=== PATIENT | female | born 1940 | race African-American/Black ===

== ENCOUNTER 2017-06-16 10:05 | Inpatient (IN) ==
[2017-06-16] MEDS ORDERED: *HR* OxyCODONE Immed Rel 5 MG TABLET PO PRN (11:50)
[2017-06-16] MEDS ORDERED: Naloxone 0.4 MG/ML INJ IVP PRN (11:50)
[2017-06-16] MEDS ORDERED: Acetaminophen 325 MG TABLET PO PRN (11:50)
[2017-06-16] MEDS ORDERED: Ondansetron 4 MG/2 ML VIAL IVP PRN (11:52)
[2017-06-16] MEDS ORDERED: D5% in Water 1,000 ML IVC PRN (13:06)
[2017-06-16] MEDS ORDERED: *HR* Dextrose 50 % in Water (Syg) 50 ML SYRINGE IVP PRN (13:06)
[2017-06-16] MEDS ORDERED: Dextrose Gel 15 GM PO PRN ×2 (13:06)
--- NOTE | 2017-06-16 13:11 | Internal Med History&Physical ---
Date of Encounter: 06/16/17 Time of Encounter: 11:40 Assessment and Plan (1) Closed right hip fracture Current visit: Yes Status: Acute Patient with acute right hip fracture. Supportive care. Pain control. Consult with orthopedics for surgical management. Monitor vital signs. Pain control with combination of oral and intravenous medications. Preop eval: Patient stable at baseline. No acute cardiac issues. Underwent 2- D echocardiogram earlier this month which showed an EF of 70% with normal LV chamber size and function and mild left frontal and diastolic dysfunction. No evidence of pulmonary hypertension. Patient would be at intermediate risk for cardiac complications from anesthesia and surgery given her age. Patient okay to proceed with surgery at this point. Qualifiers: Encounter type: initial encounter Qualified Code(s): S72.001A - Fracture of unspecified part of neck of right femur, initial encounter for closed fracture (2) DM2 (diabetes mellitus, type 2) Current visit: Yes Status: Chronic monitor blood sugars. Place patient on sliding scale insulin. Diabetic diet when patient is able to eat. 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 Physical therapy consult after surgery. Patient will most likely need placement to skilled rehabilitation. Qualifiers: Encounter type: initial encounter Qualified Code(s): W19.XXXA - Unspecified fall, initial encounter (4) Leukocytosis Current visit: Yes Status: Acute Patient has acute leukocytosis. No signs of infection at this time. Most likely related to acute fracture. Will monitor vital signs and WBC count. No indication for antibiotics at this time. Qualifiers: Leukocytosis type: other Qualified Code(s): D72.828 - Other elevated white blood cell count (5) Atrial fibrillation Current visit: Yes Status: Chronic Patient with history of chronic atrial fibrillation. On metoprolol for rate control and Xarelto for anticoagulation. We will hold Xarelto for now due to acute fracture and need for surgery. Monitor vital signs closely. If hemoglobin levels are stable, may start IV heparin for anticoagulation if surgery delayed for any reason. Resume Xarelto after surgery when okay with orthopedics. Monitor heart rate with telemetry. Qualifiers: Atrial fibrillation type: paroxysmal Qualified Code(s): I48.0 - Paroxysmal atrial fibrillation Internal Medicine - H&P: HPI Chief complaint: Fall with injury to right hip Admitted From: Emergency Dept Plans for Post Hospital Care: Transfer Half-Way Facility History of present illness: Ms. Benedict is a 76 year old female patient with history of atrial fibrillation, diabetes who was recently discharged from [facility] following, admission for pneumonia presented to the ER today with complaints of fall. She was trying to product picker something from the floor while sitting up in her wheelchair this morning when she fell down. She injured her right hip and has been having severe pain since then. She had been recovering well from her pneumonia and had completed antibiotic treatment. She denies any chest pain and shortness of breath nausea vomiting or diarrhea. She denies any palpitations or lightheadedness. Denies any orthopnea but does get mild swelling in her lower extremities occasionally. She takes metformin at home for her diabetes. She is on Xarelto for A. fib. Past Med Surg Social Fam HX - Past Medical History Attestation: Yes The following information was validated with the patient. Source: patient Medical history: atrial fibrillation, CVA, diabetes, hypertension Psychiatric history: no psych history - Past Surgical History Surgical History: cholecystectomy - Social History Smoking Status: Never smoker Smokeless Tobacco Status: No Alcohol use: none Drug use: none - Family History Daughter Hx Family Endocrine Disorder: Yes Son Hx Family Endocrine Disorder: Yes Internal Medicine - H&P: Meds Aspirin 81 mg PO Q48H 365 Days tab.chew 06/09/17 [Rx] Metoprolol XL (24 HR) Succ [Toprol XL] 25 mg PO DAILY #30 tab.er.24h 06/09/17 [ Rx] Rivaroxaban [Xarelto] 20 mg PO DAILY #30 tablet 06/09/17 [Rx] metFORMIN [Glucophage] 500 mg PO BIDWM #60 tablet 06/09/17 [Rx] Insulin LISPRO [HumaLOG] 0 units SQ TIDAC PRN 06/16/17 [History] 3 Allergy/AdvReac Type Severity Reaction Status Date / Time No Known Allergies Allergy Verified 05/30/17 05:00 All Systems PM: A 10-system review of systems was performed and is negative for pertinent findings except as documented above in the HPI. - Constitutional Constitutional: no chills, no fever(s), no night sweats - EENT Eyes: no change in vision, no discharge, no pain, no photophobia Ears: no ear discharge, no ear pain, no tinnitus Nose, mouth and throat: no dysphagia, no nasal discharge, no neck pain, no sore throat - Cardiovascular Cardiovascular ROS IM: no chest pain, no diaphoresis, no dyspnea, no lightheadedness, no palpitations, no syncope - Respiratory Respiratory: no cough, no dyspnea, no wheezing, no excessive phlegm production - Gastrointestinal Gastrointestinal: no abdominal pain, no diarrhea, no hematemesis, no hematochezia, no melena, no nausea, no vomiting - Genitourinary Genitourinary: no change in urinary stream, no dysuria, no flank pain, no hematuria - Musculoskeletal Musculoskeletal ROS IM: as per HPI, no numbness, no tingling - Integumentary Integumentary IM: no rash, no unusual bruising - Neurological Neurological ROS: no confusion, no convulsions, no focal weakness, no numbness, no tingling, no tremor(s) - Hematologic/Lymphatic Hematologic/Lymphatic: no easy bruising - Constitutional Vitals: Temp Pulse Resp BP Pulse Ox 97.7 F 96 16 148/83 95 06/16/17 11:46 06/16/17 11:46 06/16/17 11:46 06/16/17 11:46 06/16/17 11:46 General appearance: Present: cooperative, A&O X 3, answers questions appropriately Exam: Moderate distress - Neck Neck exam general surgery: Present: supple, trachea midline. Absent: lymphadenopathy - Respiratory Respiratory exam: Present: CTAB. Absent: accessory muscle use, rales, rhonchi, wheezes - Cardiovascular Cardiovascular exam: Present: RRR, +S1, +S2. Absent: diastolic murmur, gallop, rubs, systolic murmur - GI/Abdominal GI/Abdominal exam: Present: normal bowel sounds, soft, no peritoneal signs. Absent: distended, tenderness - Extremities Exam Extremities exam: Present: tenderness (Right hip with decreased range of motion at hip and knee), warm, radial pulses palpable and symmetrical. Absent: calf tenderness, cyanotic, pedal edema - Neurological Exam Neurological exam: Present: alert, CN II-XII intact, oriented X3, no focal deficits. Absent: facial droop, speech deficit - Skin Skin exam: Present: dry, intact
[2017-06-16] MEDS: Ketorolac 30 MG/ML VIAL IVP PRN ×2 (14:28→20:52)
[2017-06-16] MEDS: *HR* Heparin 5,000 UNIT/ML VIAL SQ SCH (16:20)
[2017-06-16] MEDS: Insulin LISPRO 300 UNITS/3 ML VIAL SQ SCH (16:20)
[2017-06-16] MEDS: Ringers Solution, Lactated 1,000 ML IVC SCH (19:59)
--- NOTE | 2017-06-16 20:17 | Anesthesia Evaluation PreOp ---
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 History: CVA, Other Other Medical History: Diabetes Type II Anesthesia History: No Prior Anesthetic Complications, Past Anesthesia Alcohol Use: none Drug use: none Medications and Allergies Aspirin 81 mg PO Q48H 365 Days tab.chew 06/09/17 [Rx] Metoprolol XL (24 HR) Succ [Toprol XL] 25 mg PO DAILY #30 tab.er.24h 06/09/17 [ Rx] Rivaroxaban [Xarelto] 20 mg PO DAILY #30 tablet 06/09/17 [Rx] metFORMIN [Glucophage] 500 mg PO BIDWM #60 tablet 06/09/17 [Rx] Insulin LISPRO [HumaLOG] 0 units SQ TIDAC PRN 06/16/17 [History] 3 Allergy/AdvReac Type Severity Reaction Status Date / Time No Known Allergies Allergy Verified 05/30/17 05:00 - Meds/Allergy Pre-op Review Medications Reviewed: Yes Allergies Reviewed: Yes Beta Blockers on Current Med List: Yes Anesthesia Results - Labs Laboratory Last Values WBC 20.0 K/mcL (4.3-11.1) H 06/16/17 09:37 RBC 3.86 M/mcL (3.82-4.97) 06/16/17 09:37 Hgb 11.2 g/dL (11.5-15.4) L 06/16/17 09:37 Hct 34.0 % (35.3-44.9) L 06/16/17 09:37 MCV 88.1 fL (83.0-100.0) 06/16/17 09:37 MCH 29.0 pg (28.0-33.3) 06/16/17 09:37 MCHC 32.9 g/dL (31.6-35.5) 06/16/17 09:37 RDW 13.2 % (11.5-14.5) 06/16/17 09:37 Plt Count 432 K/mcL (140-400) H 06/16/17 09:37 MPV 9.5 fL (9.4-12.4) 06/16/17 09:37 Immature Gran % 0.7 % (0-4) 06/16/17 09:37 Seg Neutrophils % 84.1 % 06/16/17 09:37 Lymphocytes % 8.4 % 06/16/17 09:37 Monocytes % 5.9 % 06/16/17 09:37 Eosinophils % 0.4 % 06/16/17 09:37 Basophils % 0.5 % 06/16/17 09:37 Neutrophils # 16.8 K/mcL (1.6-8.9) H 06/16/17 09:37 Lymphocytes # 1.7 K/mcL (0.6-4.6) 06/16/17 09:37 Monocytes # 1.2 K/mcL (0.0-1.3) 06/16/17 09:37 Eosinophils # 0.1 K/mcL (0.0-0.6) 06/16/17 09:37 Basophils # 0.1 K/mcL (0.0-0.2) 06/16/17 09:37 PT 11.6 Seconds (9.4-12.1) 06/16/17 09:37 INR 1.1 06/16/17 09:37 APTT 32.8 Seconds (26.0-36.0) 06/16/17 09:37 Sodium 135 mEq/L (136-145) L 06/16/17 09:37 Potassium 4.4 mEq/L (3.5-5.1) 06/16/17 09:37 Chloride 98 mEq/L (98-107) 06/16/17 09:37 Carbon Dioxide 27 mEq/L (23-29) 06/16/17 09:37 BUN 18 mg/dL (8-23) 06/16/17 09:37 Creatinine 0.76 mg/dL (0.60-1.20) 06/16/17 09:37 Est GFR ( Amer) > 60 (> 60) 06/16/17 09:37 Est GFR (Non-Af Amer) > 60 (> 60) 06/16/17 09:37 BUN/Creatinine Ratio 24 (6-26) 06/16/17 09:37 Glucose 245 mg/dL (70-105) H 06/16/17 09:37 Calculated Osmolality 290 (280-300) 06/16/17 09:37 Calcium 9.2 mg/dL (8.6-10.3) 06/16/17 09:37 - Imaging EKG: report reviewed (Afib with RVR) Chest x-ray: report reviewed (No acute process) Additional studies: TTE 05/30/2017: LVEF 70%. Normal LV chamber size and function. Mild asymmetric hypertrophy of the basal septum. Mild left ventricular diastolic dysfunction. Normal right ventricular structure and function. No evidence of pulmonary hypertension. EKG 05/30/2017: ATRIAL FIBRILLATION WITH RAPID VENTRICULAR RESPONSE NONSPECIFIC ST & T-WAVE ABNORMALITY Anesthesia Exam Vital Signs/O2 Sat/Glucose, Most Recent Temp Pulse Resp BP Pulse Ox 98.1 F 80 15 106/62 94 06/16/17 19:33 06/16/17 19:33 06/16/17 19:33 06/16/17 19:33 06/16/17 19:33 Blood Glucose* 242 Height: 64 in Weight: 67 kg BMI 25 NPO (# of Hours): Patient can have clears until 5 am - HEENT Pupil (Motor): Pupils equal Mallampati: II Teeth: Edentulous Oral Opening: Greater than 3 - CHUTE LOADER LOC: Confused, Disoriented - Cardiac Rhythm: Irregular - Pulmonary Breath Sounds: bilateral Clear Anesthesia Assess/Plan ASA Score: 5 Anesthetic Plan: General Autologous Blood: Yes (Poss if convert to open. T&S ordered) Monitoring Plan: Standard Monitors, A-Line (Possible) Recovery Plan: PACU Anes Supervising Prov Stmt: The patient's history was obtained from chart review. I was unable to have a meaningful interaction with the patient, and I am not sure that she can give an informed consent. Apparently this is her baseline mental status. The patient is very frail, and is normally unable to take care of herself, and walks with the assistance of a walker. She was admitted with pneumonia from the to the 15th of this month. The patient does not have a POA, and does not have advance directives. The patient medically needs the procedure, for pain control and to improve nursing care. The patient will likely need to be in a skilled nursing care facility upon discharge. Consideration for hospice care would be very appropriate. This was discussed with the patient, the patient's sister who was present, and on the phone with the patient's daughter Kimmy who is her main caregiver, and who the patient lives with. This was also relayed to the patient's nurse and the unit charge nurse. A writen consent was NOT obtained.
[2017-06-16] MEDS ORDERED: Insulin LISPRO 300 UNITS/3 ML VIAL SQ SCH (21:00)
[2017-06-17] MEDS: Ketorolac 30 MG/ML VIAL IVP PRN ×3 (02:50→18:20)
[2017-06-17 06:09] LABS: Basophils % 0.3 %; Eosinophils # 0.1 K/mcL (0.0-0.6); Eosinophils % 1.1 %; Hematocrit 30.3 % (35.3-44.9); Hemoglobin 9.9 g/dL (11.5-15.4); Immature Granulocytes % 0.3 % (0-4); Lymphocytes # 1.4 K/mcL (0.6-4.6); Lymphocytes % 12.6 %; Mean Corpuscular HGB Conc 32.7 g/dL (31.6-35.5); Mean Corpuscular Hemoglobin 27.9 pg (28.0-33.3); Mean Corpuscular Volume 85.4 fL (83.0-100.0); Monocytes # 0.8 K/mcL (0.0-1.3); Monocytes % 7.4 %; Platelet Count 357 K/mcL (140-400); Red Blood Count 3.55 M/mcL (3.82-4.97); Red Cell Distribution Width 13.3 % (11.5-14.5); Segmented Neutrophils % 78.3 %
[2017-06-17 06:14] LABS: BUN/Creatinine Ratio 27 (6-26); Blood Urea Nitrogen 21 mg/dL (8-23); Carbon Dioxide 26 mEq/L (23-29); Chloride 100 mEq/L (98-107); Glucose 180 mg/dL (70-105); Osmolality,Calculated 284 (280-300); Potassium 4.3 mEq/L (3.5-5.1); Sodium 133 mEq/L (136-145); eGFR For African Americans > 60 (> 60); eGFR For Non-African Americans > 60 (> 60)
[2017-06-17] MEDS: *HR* Heparin 5,000 UNIT/ML VIAL SQ SCH (06:31)
--- NOTE | 2017-06-17 07:05 | Orthopedic Consult Note ---
Date of Encounter: 06/17/17 Time of Encounter: 07:03 Assessment and Plan (1) Hip fracture, intertrochanteric Current Visit: Yes Status: Acute Diagnosis and treatment options were discussed with the patient. She has a displaced right intertrochanteric fracture. Previously she was ambulating with a walker. Recommendation is for surgical fixation of the right hip cephalomedullary nail. The risks and benefits of the procedure were fully explained in detail, including but not limited to the risk of infection, neurovascular injury, continued pain or stiffness, failure of surgery, reinjury , or need for additional surgery, DVT, PE, general risks of anesthesia and loss of limb or life. No guarantees were given or implied and all questions were answered. The patient understands all the risks and does wish to proceed with written consent. Nothing by mouth for surgery today. Qualifiers: Encounter type: initial encounter Fracture type: closed Fracture alignment: displaced Laterality: right Qualified Code(s): S72.141A - Displaced intertrochanteric fracture of right femur, initial encounter for closed fracture History of Present Illness HPI: Ms. Benedict is a 76 year old female who had a mechanical fall on 06/16/17. She tripped and fell onto her right hip. Denies loss of consciousness, CP or SOB prior to the fall. Had pain and deformity in the right hip after the fall. Denies other orthopedic or neurovascular complaints. Past Med Surg Social Fam HX - Past Medical History Medical history: atrial fibrillation, CVA, diabetes, hypertension Psychiatric history: no psych history - Past Surgical History Surgical History: cholecystectomy - Social History Smoking Status: Never smoker Smokeless Tobacco Status: No Alcohol use: none Drug use: none - Family History Daughter Hx Family Endocrine Disorder: Yes Son Hx Family Endocrine Disorder: Yes Medications and Allergies Aspirin 81 mg PO Q48H 365 Days tab.chew 06/09/17 [Rx] Metoprolol XL (24 HR) Succ [Toprol XL] 25 mg PO DAILY #30 tab.er.24h 06/09/17 [ Rx] Rivaroxaban [Xarelto] 20 mg PO DAILY #30 tablet 06/09/17 [Rx] metFORMIN [Glucophage] 500 mg PO BIDWM #60 tablet 06/09/17 [Rx] Insulin LISPRO [HumaLOG] 0 units SQ TIDAC PRN 06/16/17 [History] 3 Allergy/AdvReac Type Severity Reaction Status Date / Time No Known Allergies Allergy Verified 05/30/17 05:00 All Systems Reviewed: The remainder of the systems were reviewed and are negative Physical Exam - Constitutional Vitals: Temp Pulse Resp BP Pulse Ox 98.3 F 78 16 118/74 95 06/17/17 06:50 06/17/17 06:50 06/17/17 06:50 06/17/17 06:50 06/17/17 06:50 General appearance IM: A&O X 3 Exam: Consult Exam: Constitutional -Vitals reviewed -The patient is well developed and well nourished. -Mood is pleasant. -The patient is well groomed. Psychiatric -The patient is fully alert and oriented x 3. Respiratory: -Respiratory effort normal Abdomen: -Soft abdomen -Non tender -Non distended: Left upper extremity: -No deformities. The overlying skin is intact. No obvious signs of acute trauma. -No tenderness to palpation throughout. -No significant pain with passive motion of the shoulder, elbow, wrist, and fingers within the limits of the bed. -Able to make an "OK" sign, cross the index and long fingers, and extend the thumb. -Sensation grossly intact to light touch throughout the median, radial, and ulnar distributions. -Radial pulse is present; Fingers have good capillary refill. Right upper extremity: -No deformities. The overlying skin is intact. No obvious signs of acute trauma. -No tenderness to palpation throughout. -No significant pain with passive motion of the shoulder, elbow, wrist, and fingers within the limits of the bed. -Able to make an "OK" sign, cross the index and long fingers, and extend the thumb. -Sensation grossly intact to light touch throughout the median, radial, and ulnar distributions. -Radial pulse is present; Fingers have good capillary refill. Left lower extremity: -No deformities. The overlying skin is intact. No obvious signs of acute trauma. -No tenderness to palpation throughout. -No pain with passive motion of the hip, knee, ankle, and toes within the limits of the bed. -No pain with axial loading of the thigh. -Able to dorsiflex and plantarflex the ankle and toes. -Sensation is grossly intact to light touch throughout the sural, saphenous, superficial peroneal, and deep peroneal distributions. -Toes have good capillary refill. Right lower extremity: -Right hip short/ER -ROM deferred due to known fracture -Able to dorsiflex and plantarflex the ankle and toes. -Sensation is grossly intact to light touch throughout the sural, saphenous, superficial peroneal, and deep peroneal distributions. -Toes have good capillary refill. Results - Labs Result Diagrams: 06/17/17 05:39 06/17/17 05:39 Labs: Abnormal lab results WBC 11.4 K/mcL (4.3-11.1) H 06/17/17 05:39 RBC 3.55 M/mcL (3.82-4.97) L 06/17/17 05:39 Hgb 9.9 g/dL (11.5-15.4) L 06/17/17 05:39 Hct 30.3 % (35.3-44.9) L 06/17/17 05:39 MCH 27.9 pg (28.0-33.3) L 06/17/17 05:39 Neutrophils # 9.0 K/mcL (1.6-8.9) H 06/17/17 05:39 Sodium 133 mEq/L (136-145) L 06/17/17 05:39 BUN/Creatinine Ratio 27 (6-26) H 06/17/17 05:39 Glucose 180 mg/dL (70-105) H 06/17/17 05:39 POC Glucose 128 (58-89) H 06/16/17 20:40 H & H 06/17/17 Range/Units 05:39 Hgb 9.9 L (11.5-15.4) g/dL Hct 30.3 L (35.3-44.9) % All other labs normal. - Diagnostic results Hip x-ray: report reviewed, image reviewed (Displaced right intertrochanteric fracture) Consult Discharge Plan - Plan Referrals: NONE,PCP [Primary Care Provider] - David Horton, FIREMAN [Family Provider] -
[2017-06-17] MEDS: Insulin LISPRO 300 UNITS/3 ML VIAL SQ SCH ×4 (08:49→20:44)
[2017-06-17] MEDS: Ringers Solution, Lactated 1,000 ML IVC SCH (10:47)
--- NOTE | 2017-06-17 12:09 | Internal Med Progress Note ---
Date of Encounter: 06/17/17 Time of Encounter: 12:04 - Assessment and plan (1) Hip fracture, intertrochanteric Current Visit: Yes Status: Acute Assessment and plan: Right intertrochanteric fracture Occurred after a fall Orthopedic surgery consulted, surgery is scheduled for later today Continue oxycodone and Toradol for pain X-ray showed: Acute comminuted displaced traumatic intertrochanteric fracture of the right proximal femur. Qualifiers: Encounter type: initial encounter Fracture type: closed Fracture alignment: displaced Laterality: right Qualified Code(s): S72.141A - Displaced intertrochanteric fracture of right femur, initial encounter for closed fracture (2) Atrial fibrillation Current Visit: Yes Status: Chronic Assessment and plan: Controlled on metoprolol No anticoagulation, high risk of falling Qualifiers: Atrial fibrillation type: paroxysmal Qualified Code(s): I48.0 - Paroxysmal atrial fibrillation (3) DM2 (diabetes mellitus, type 2) Current Visit: Yes Status: Chronic Assessment and plan: Insulin sliding scale Qualifiers: 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 custodial use Diabetes mellitus complication status: with kidney complications Diabetes mellitus complication detail: with chronic kidney disease Chronic kidney disease stage : stage 3 (moderate) Qualified Code(s): E11.22 - Type 2 diabetes mellitus with diabetic chronic kidney disease; N18.3 - Chronic kidney disease, stage 3 ( moderate); N18.3 - Chronic kidney disease, stage 3 (moderate) (4) Hyponatremia Current Visit: No Status: Acute Assessment and plan: Monitor sodium (5) Dementia Current Visit: Yes Status: Acute Assessment and plan: Family expressed concern over her mental decline over the past few years Possible dementia Qualifiers: Dementia type: unspecified type Dementia behavioral disturbance: without behavioral disturbance Qualified Code(s): F03.90 - Unspecified dementia without behavioral disturbance - Subjective Interval history: Complains of pain on the right hip 6 out of 10 in intensity, denies any chest pain or shortness of breath, no abdominal pain or dysuria - Constitutional Vitals: Temp Pulse Resp BP Pulse Ox 98.2 F 69 16 110/58 96 06/17/17 10:40 06/17/17 10:40 06/17/17 10:40 06/17/17 10:40 06/17/17 10:40 General appearance: Present: cooperative, A&O X 3, answers questions appropriately Exam: Confused at times - Head Head exam: Present: atraumatic, normocephalic - Eye Eye exam: Present: PERRL, conjuntiva pink, sclera anicteric Pupils: Present: PERRL - Neck Neck exam general surgery: Present: supple, trachea midline. Absent: lymphadenopathy - Respiratory Respiratory exam: Present: CTAB. Absent: accessory muscle use, rales, rhonchi, wheezes - Cardiovascular Cardiovascular exam: Present: RRR, +S1, +S2. Absent: diastolic murmur, gallop, rubs, systolic murmur - GI/Abdominal GI/Abdominal exam: Present: normal bowel sounds, soft, no peritoneal signs. Absent: distended, tenderness - Extremities Exam Extremities exam: Present: warm, radial pulses palpable and symmetrical. Absent : calf tenderness, cyanotic, pedal edema Additional comments: Right hip swelling, no ecchymosis - Neurological Exam Neurological exam: Present: CN II-XII intact, oriented X3, no focal deficits. Absent: pronater drift, facial droop, speech deficit - Skin Skin exam: Present: dry, intact Internal Medicine: Result - Labs CBC & Chem 7: 06/17/17 05:39 06/17/17 05:39 Labs: Short CBC 06/17/17 Range/Units 05:39 WBC 11.4 H (4.3-11.1) K/mcL Hgb 9.9 L (11.5-15.4) g/dL Hct 30.3 L (35.3-44.9) % Plt Count 357 (140-400) K/mcL Neutrophils # 9.0 H (1.6-8.9) K/mcL BMP 06/17/17 05:39 Sodium 133 L Potassium 4.3 Chloride 100 Carbon Dioxide 26 BUN 21 Creatinine 0.78 Glucose 180 H Calcium 9.0 Consult Discharge Plan - Plan Referrals: NONE,PCP [Primary Care Provider] - David Horton, AIR BRAKE ADJUSTER [Family Provider] -
[2017-06-17] MEDS ORDERED: *HR* Propofol 200 MG/20 ML VIAL IVP ONE (16:23)
[2017-06-17] MEDS ORDERED: *HR* FentaNYL (PF) 100 MCG/2 ML VIAL ONE (16:23)
[2017-06-17] MEDS ORDERED: Ondansetron 4 MG/2 ML VIAL ONE (16:25)
[2017-06-17] MEDS ORDERED: Lidocaine -MPF 2% 2 ML VIAL ONE (16:25)
[2017-06-17] MEDS ORDERED: Dexamethasone 4 MG/ML VIAL ONE (16:25)
[2017-06-17] MEDS ORDERED: *HR* PHENYLEPHRINE 1,000 MCG/10 ML SYRINGE IVP ONE (16:54)
[2017-06-17] MEDS ORDERED: *HR* Succinylcholine 200 MG/10 ML VIAL IVP ONE (17:12)
[2017-06-17] MEDS ORDERED: Lidocaine -MPF 4% 5 ML AMPUL ONE (17:12)
[2017-06-17] MEDS ORDERED: MORPHINE SUL Oral CONC 10 MG/0.5 ML ORAL.SYG SL PRN (17:13)
[2017-06-17] MEDS ORDERED: *HR* Meperidine 25 MG/ML SYRINGE IVP PRN (17:13)
[2017-06-17] MEDS ORDERED: *HR* Labetalol 100 MG/20 ML MDV IVP PRN (17:13)
[2017-06-17] MEDS ORDERED: *HR* OxyCODONE Immed Rel 5 MG TABLET PO PRN (17:13)
--- NOTE | 2017-06-17 17:15 | Orthopedic Operative Note ---
Date of procedure: 06/17/17 Pre-op diagnosis: Displaced right intertrochanteric hip fracture Post-op diagnosis: same Procedure: Procedure: Right hip open reduction intramedullary nail fixation Estimated blood loss: 100 cc Hardware: Metal: 10 x 1 30 Synthes TFN, 95 helical blade, 36 mm distal locking bolt Operative procedure: The patient was brought to the operating room and placed on the operating room table. After general anesthesia was administered the well leg was place in the well leg morris and the operative leg was placed in the fracture leg morris. All pressure points were padded appropriately. The operative extremity was prepped and draped in the sterile surgical fashion patient received IV antibiotic prior to skin incision. A standard direct lateral approach was made over the entry point of the greater trochanter, the incision was made through the skin and subcutaneous tissue hemostasis was obtained with Bovie cautery. Using careful sharp dissection the fascia was identified and incised, flouroscopic assistance was used to identify the entry point. The guidepin was placed at the entry point using fluroscopic assistance, it was over reamed with the proximal reamer. The 10 x 130 nail was placed through the entry hole, across the fracture site into the distal fragment. the position was confirmed with fluroscopy. A guide pin was placed through the proximal locking guide from the lateral femur through the nail across the fracture site into the femoral head, it was over reamed with the reamer. The 95 mm helical blade was placed over the guide pin through the nail into the femoral head there was some gapping at the fracture site and therefore the proximal locking bolt was not engaged to allow for fracture compression. 36 mm Distal locking bolt was placed through the distal locking guide. position of hardware and fracture reduction found to be acceptable with fluroscopic assistance. The wound was irrigated. Fascia was closed with a running #2 PDS suture. The deep tissue was irrigated and closed deep with #1 PDS suture superficially with 0 PDS suture and skin was closed with skin kay. The patient was placed in a sterile dressing The patient was extubated and transferred to the recovery room in stable condition. Anesthesia: GETA Surgeon: Son Turner Was there an early childhood teacher assistant present: No Estimated blood loss (cc): 100 Condition: stable Disposition: PACU
[2017-06-17] MEDS: *HR* Promethazine 25 MG/ML VIAL IVP PRN ×2 (17:38→17:43)
[2017-06-17] MEDS ORDERED: Ringers Solution, Lactated 1,000 ML ONE (17:45)
[2017-06-17] MEDS ORDERED: Ringers Solution, Lactated 1,000 ML IVC SCH (18:36)
[2017-06-17] MEDS ORDERED: Dextrose Gel 15 GM PO PRN ×2 (18:36)
[2017-06-17] MEDS ORDERED: *HR* Dextrose 50 % in Water (Syg) 50 ML SYRINGE IVP PRN (18:36)
[2017-06-17] MEDS ORDERED: Naloxone 0.4 MG/ML INJ IVP PRN ×2 (18:36)
[2017-06-17] MEDS ORDERED: D5% in Water 1,000 ML IVC PRN (18:36)
[2017-06-17] MEDS ORDERED: Ondansetron 4 MG/2 ML VIAL IVP PRN (18:36)
[2017-06-17] MEDS ORDERED: Ketorolac 30 MG/ML VIAL IVP PRN (18:36)
[2017-06-17] MEDS: *HR* OxyCODONE Immed Rel 5 MG TABLET PO PRN (20:42)
[2017-06-17] MEDS: CeFAZolin Premix DUPLEX 2,000 MG/50 ML BAG IVPB SCH (23:58)
[2017-06-18] MEDS ORDERED: *HR* Heparin 5,000 UNIT/ML VIAL SQ SCH (06:00)
[2017-06-18] MEDS: CeFAZolin Premix DUPLEX 2,000 MG/50 ML BAG IVPB SCH (09:01)
[2017-06-18] MEDS: Insulin LISPRO 300 UNITS/3 ML VIAL SQ SCH ×5 (09:02→20:40)
[2017-06-18] MEDS: *HR* OxyCODONE Immed Rel 5 MG TABLET PO PRN ×2 (10:13→22:30)
--- NOTE | 2017-06-18 11:05 | Internal Med Progress Note ---
Date of Encounter: 06/18/17 Time of Encounter: 11:03 - Assessment and plan (1) Hip fracture, intertrochanteric Current Visit: Yes Status: Acute Assessment and plan: Right intertrochanteric fracture status post open reduction with intramedullary nail fixation Occurred after a fall Orthopedic surgery following Continue oxycodone and Toradol for pain X-ray showed: Acute comminuted displaced traumatic intertrochanteric fracture of the right proximal femur. Qualifiers: Encounter type: initial encounter Fracture type: closed Fracture alignment: displaced Laterality: right Qualified Code(s): S72.141A - Displaced intertrochanteric fracture of right femur, initial encounter for closed fracture (2) Atrial fibrillation Current Visit: Yes Status: Chronic Assessment and plan: Controlled on metoprolol Resume xarelto in the morning Qualifiers: Atrial fibrillation type: paroxysmal Qualified Code(s): I48.0 - Paroxysmal atrial fibrillation (3) DM2 (diabetes mellitus, type 2) Current Visit: Yes Status: Chronic Assessment and plan: Insulin sliding scale Qualifiers: Diabetes mellitus senior living insulin use: without director long term care use Diabetes mellitus complication status: with kidney complications Diabetes mellitus complication detail: with chronic kidney disease Chronic kidney disease stage : stage 3 (moderate) Qualified Code(s): E11.22 - Type 2 diabetes mellitus with diabetic chronic kidney disease; N18.3 - Chronic kidney disease, stage 3 ( moderate); N18.3 - Chronic kidney disease, stage 3 (moderate) (4) Hyponatremia Current Visit: No Status: Acute Assessment and plan: Monitor sodium (5) Dementia Current Visit: Yes Status: Acute Assessment and plan: Family expressed concern over her mental decline over the past few years Possible dementia Qualifiers: Dementia type: unspecified type Dementia behavioral disturbance: without behavioral disturbance Qualified Code(s): F03.90 - Unspecified dementia without behavioral disturbance (6) CVA (cerebral vascular accident) Current Visit: Yes Status: Acute Assessment and plan: History of CVAs Resume aspirin Qualifiers: CVA mechanism: unspecified Qualified Code(s): I63.9 - Cerebral infarction, unspecified - Subjective Interval history: Complains of pain on the right hip 4 out of 10 in intensity, improved, denies any chest pain or shortness of breath, no abdominal pain or dysuria, confused at baseline - Constitutional Vitals: Temp Pulse Resp BP Pulse Ox 97.7 F 73 14 108/61 97 03/24/18 07:08 06/18/17 07:08 06/18/17 07:08 06/18/17 07:08 06/18/17 09:19 General appearance: Present: cooperative, A&O X 3, answers questions appropriately Exam: Confused at times Disoriented in time - Head Head exam: Present: atraumatic, normocephalic - Eye Eye exam: Present: PERRL, conjuntiva pink, sclera anicteric Pupils: Present: PERRL - Neck Neck exam general surgery: Present: supple, trachea midline. Absent: lymphadenopathy - Respiratory Respiratory exam: Present: CTAB. Absent: accessory muscle use, rales, rhonchi, wheezes - Cardiovascular Cardiovascular exam: Present: RRR, +S1, +S2. Absent: diastolic murmur, gallop, rubs, systolic murmur - GI/Abdominal GI/Abdominal exam: Present: normal bowel sounds, soft, no peritoneal signs. Absent: distended, tenderness - Extremities Exam Extremities exam: Present: warm, radial pulses palpable and symmetrical. Absent : calf tenderness, cyanotic, pedal edema Additional comments: Right hip surgical wound , no signs of hematoma or infection Internal Medicine: Result - Labs CBC & Chem 7: 06/17/17 05:39 06/17/17 05:39 - Impressions Impressions Fluoroscopy 06/17/17 16:45 IMPRESSION: Intraprocedural fluoroscopic spot images as above. See separate procedure report for more information. D/ / Son Horton MD / Son Horton MD Interpreting Provider: Son Horton MD Hip X-Ray 06/17/17 16:45 IMPRESSION: Intraprocedural fluoroscopic spot images as above. See separate procedure report for more information. D/ / Son Horton MD / Son Hortno MD Interpreting Provider: Son Horton MD - VTE Documentation of Mechanical Device: Venous foot pump, device Consult Discharge Plan - Plan Referrals: NONE,PCP [Primary Care Provider] - David Horton, CHIEF CHEMIST [Family Provider] -
--- NOTE | 2017-06-18 11:07 | Orthopedics Progress Note ---
Date of Encounter: 06/18/17 Time of Encounter: 11:07 Subjective Principal diagnosis: Status post IM nailing Interval history: The patient is without complaints. Afebrile vital signs are stable. Incision is clean dry and intact. Neurovascularly intact with regard to bilateral lower extremities. Assessment :stable. Plan mobilize ,continue analgesics, discharge planning. Objective Vital signs: Vital Signs Temp Pulse Resp BP Pulse Ox 06/18/17 09:19 97 06/18/17 07:08 97.7 F 73 14 108/61 97 06/18/17 04:47 97.7 F 78 14 129/73 99 06/18/17 00:36 96.8 F L 76 14 91/54 96 06/17/17 20:50 97.7 F 85 16 115/70 100 06/17/17 19:50 98.5 F 85 16 131/78 94 06/17/17 19:20 98.4 F 84 14 144/78 96 06/17/17 18:50 97.7 F 84 15 110/66 100 06/17/17 18:27 81 18 148/80 98 06/17/17 18:17 84 18 143/62 96 06/17/17 18:07 97.9 F 85 20 129/71 99 06/17/17 17:57 84 18 133/75 100 06/17/17 17:47 82 18 132/59 100 06/17/17 17:37 20 95/50 96 06/17/17 17:27 98.7 F 72 24 94/66 96 Intake and Output 06/17/17 06/18/17 06/18/17 23:59 07:59 15:59 Intake Total 50 / 50 360 / 360 Output Total 200 / 200 300 / 300 Balance -200 / -200 -250 / -250 360 / 360 Intake: IV Fluids 50 / 50 Ancef Premix DUPLEX 2,000 mg In 50 / 50 50 ml @ 100 mls/hr IVPB Q8HR [facility] Rx#:[id number] Oral 360 / 360 Output: Estimated Blood Loss 100 / 100 Urine Amount (Catheter) 100 / 100 Catheter 300 / 300 Other: Meal Breakfast Percent of Meal Consumed 95% Blood Glucose* 189 217 - Labs CBC & BMP: 06/17/17 05:39 06/17/17 05:39 Labs: Abnormal lab results WBC 11.4 K/mcL (4.3-11.1) H 06/17/17 05:39 RBC 3.55 M/mcL (3.82-4.97) L 06/17/17 05:39 Hgb 9.9 g/dL (11.5-15.4) L 06/17/17 05:39 Hct 30.3 % (35.3-44.9) L 06/17/17 05:39 MCH 27.9 pg (28.0-33.3) L 06/17/17 05:39 Neutrophils # 9.0 K/mcL (1.6-8.9) H 06/17/17 05:39 Sodium 133 mEq/L (136-145) L 06/17/17 05:39 BUN/Creatinine Ratio 27 (6-26) H 06/17/17 05:39 Glucose 180 mg/dL (70-105) H 06/17/17 05:39 POC Glucose 189 (58-89) H 06/17/17 20:23 - VTE Documentation of Mechanical Device: Venous foot pump, device Consult Discharge Plan - Plan Referrals: NONE,PCP [Primary Care Provider] - David Horton, MED SPA MANAGER [Family Provider] -
[2017-06-18 11:27] LABS: Basophils % 0.1 %; Eosinophils % 0.1 %; Hemoglobin 8.4 g/dL (11.5-15.4); Immature Granulocytes % 0.5 % (0-4); Lymphocytes # 1.1 K/mcL (0.6-4.6); Lymphocytes % 7.9 %; Mean Corpuscular HGB Conc 32.3 g/dL (31.6-35.5); Mean Corpuscular Hemoglobin 28.3 pg (28.0-33.3); Mean Corpuscular Volume 87.5 fL (83.0-100.0); Mean Platelet Volume 10.4 fL (9.4-12.4); Monocytes # 0.9 K/mcL (0.0-1.3); Monocytes % 6.3 %; Platelet Count 363 K/mcL (140-400); Red Blood Count 2.97 M/mcL (3.82-4.97); Red Cell Distribution Width 13.4 % (11.5-14.5); Segmented Neutrophils % 85.1 %
[2017-06-18 11:44] LABS: BUN/Creatinine Ratio 26 (6-26); Blood Urea Nitrogen 24 mg/dL (8-23); Carbon Dioxide 28 mEq/L (23-29); Chloride 96 mEq/L (98-107); Glucose 255 mg/dL (70-105); Osmolality,Calculated 287 (280-300); Potassium 4.3 mEq/L (3.5-5.1); Sodium 132 mEq/L (136-145); eGFR For African Americans > 60 (> 60); eGFR For Non-African Americans 59 (> 60)
[2017-06-18] MEDS: Aspirin Enteric Coated 81 MG Tablet PO SCH (15:44)
[2017-06-18] MEDS ORDERED: Ringers Solution, Lactated 1,000 ML IVC SCH (18:15)
[2017-06-19 05:08] LABS: Bilirubin,Urine Negative (Negative); Blood,Urine Negative (Negative); Clarity,Urine Clear (Clear); Color,Urine Yellow (Yellow); Glucose,Urine (UA) Normal (Normal); Ketones,Urine Trace mg/dL (Negative); Leukocyte Esterase,Urine Negative (Negative); Nitrite,Urine Negative (Negative); PH,Urine 5.5 pH Units (5.0-8.0); Protein,Urine Negative (Neg-Trace); Urobilinogen,Urine Normal (Normal)
[2017-06-19 06:12] LABS: Hematocrit 22.2 % (35.3-44.9); Mean Corpuscular HGB Conc 31.5 g/dL (31.6-35.5); Mean Corpuscular Hemoglobin 27.7 pg (28.0-33.3); Mean Corpuscular Volume 87.7 fL (83.0-100.0); Mean Platelet Volume 10.5 fL (9.4-12.4); Platelet Count 290 K/mcL (140-400); Red Blood Count 2.53 M/mcL (3.82-4.97); Red Cell Distribution Width 13.6 % (11.5-14.5)
[2017-06-19 06:33] LABS: BUN/Creatinine Ratio 30 (6-26); Blood Urea Nitrogen 24 mg/dL (8-23); Calcium 8.6 mg/dL (8.6-10.3); Carbon Dioxide 27 mEq/L (23-29); Chloride 100 mEq/L (98-107); Glucose 192 mg/dL (70-105); Osmolality,Calculated 283 (280-300); Potassium 4.1 mEq/L (3.5-5.1); Sodium 132 mEq/L (136-145); eGFR For African Americans > 60 (> 60); eGFR For Non-African Americans > 60 (> 60)
[2017-06-19] MEDS: Aspirin Enteric Coated 81 MG Tablet PO SCH (08:09)
[2017-06-19] MEDS: Insulin LISPRO 300 UNITS/3 ML VIAL SQ SCH ×4 (08:10→20:50)
[2017-06-19] MEDS ORDERED: Furosemide 20 MG/2 ML VIAL IVP PRN (08:11)
[2017-06-19] MEDS ORDERED: 0.9 % Sodium Chloride 250 ML IVC SCH (08:15)
--- NOTE | 2017-06-19 13:52 | Internal Med Progress Note ---
Date of Encounter: 06/19/17 Time of Encounter: 13:51 - Assessment and plan (1) Hip fracture, intertrochanteric Current Visit: Yes Status: Acute Assessment and plan: Right intertrochanteric fracture status post open reduction with intramedullary nail fixation Occurred after a fall Orthopedic surgery following Continue oxycodone and Toradol for pain X-ray showed: Acute comminuted displaced traumatic intertrochanteric fracture of the right proximal femur. Qualifiers: Encounter type: initial encounter Fracture type: closed Fracture alignment: displaced Laterality: right Qualified Code(s): S72.141A - Displaced intertrochanteric fracture of right femur, initial encounter for closed fracture (2) Postoperative anemia due to acute blood loss Current Visit: Yes Status: Acute Assessment and plan: 1 unit of blood ordered Consider further transfusions Order Hemoccult, start Protonix IV, the patient has not had any bowel movements , very low suspicion for GI bleed Hold aspirin and xarelto for now (3) Atrial fibrillation Current Visit: Yes Status: Chronic Assessment and plan: Controlled on metoprolol Hold xarelto due to anemia Qualifiers: Atrial fibrillation type: paroxysmal Qualified Code(s): I48.0 - Paroxysmal atrial fibrillation (4) DM2 (diabetes mellitus, type 2) Current Visit: Yes Status: Chronic Assessment and plan: Insulin sliding scale Qualifiers: Diabetes mellitus terminal gauger supervisor insulin use: without terminal gauger supervisor use Diabetes mellitus complication status: with kidney complications Diabetes mellitus complication detail: with chronic kidney disease Chronic kidney disease stage : stage 3 (moderate) Qualified Code(s): E11.22 - Type 2 diabetes mellitus with diabetic chronic kidney disease; N18.3 - Chronic kidney disease, stage 3 ( moderate); N18.3 - Chronic kidney disease, stage 3 (moderate) (5) Hyponatremia Current Visit: No Status: Acute Assessment and plan: Monitor sodium (6) Dementia Current Visit: Yes Status: Acute Assessment and plan: Family expressed concern over her mental decline over the past few years Possible dementia Qualifiers: Dementia type: unspecified type Dementia behavioral disturbance: without behavioral disturbance Qualified Code(s): F03.90 - Unspecified dementia without behavioral disturbance (7) CVA (cerebral vascular accident) Current Visit: Yes Status: Acute Assessment and plan: History of CVAs Hold aspirin due to anemia Qualifiers: CVA mechanism: unspecified Qualified Code(s): I63.9 - Cerebral infarction, unspecified - Subjective Interval history: Complains of mild pain on the right hip 2 out of 10 in intensity, improved, denies any chest pain or shortness of breath, no abdominal pain or dysuria, confused at baseline - Constitutional Vitals: Temp Pulse Resp BP Pulse Ox 97.9 F 84 16 129/68 94 06/19/17 12:46 06/19/17 12:46 06/19/17 12:46 06/19/17 12:46 06/19/17 12:46 General appearance: Present: cooperative, A&O X 3, answers questions appropriately Exam: Confused at times Disoriented in time - Head Head exam: Present: atraumatic, normocephalic - Eye Eye exam: Present: PERRL, conjuntiva pink, sclera anicteric Pupils: Present: PERRL - Neck Neck exam general surgery: Present: supple, trachea midline. Absent: lymphadenopathy - Respiratory Respiratory exam: Present: CTAB. Absent: accessory muscle use, rales, rhonchi, wheezes - Cardiovascular Cardiovascular exam: Present: RRR, +S1, +S2. Absent: diastolic murmur, gallop, rubs, systolic murmur - GI/Abdominal GI/Abdominal exam: Present: normal bowel sounds, soft, no peritoneal signs. Absent: distended, tenderness - Extremities Exam Extremities exam: Present: warm, radial pulses palpable and symmetrical. Absent : calf tenderness, cyanotic, pedal edema Additional comments: Right hip surgical wound , no signs of hematoma or infection Internal Medicine: Result - Labs CBC & Chem 7: 06/19/17 05:25 06/19/17 05:25 Labs: Short CBC 06/19/17 Range/Units 05:25 WBC 11.0 (4.3-11.1) K/mcL Hgb 7.0 L (11.5-15.4) g/dL Hct 22.2 L (35.3-44.9) % Plt Count 290 (140-400) K/mcL BMP 06/19/17 05:25 Sodium 132 L Potassium 4.1 Chloride 100 Carbon Dioxide 27 BUN 24 H Creatinine 0.81 Glucose 192 H Calcium 8.6 Urine 06/19/17 Range/Units 04:45 Urine Color Yellow (Yellow) Urine Clarity Clear (Clear) Urine pH 5.5 (5.0-8.0) pH Units Ur Specific [place] 1.030 H (1.010-1.025) Urine Protein Negative (Neg-Trace) mg/dL Urine Glucose (UA) Normal (Normal) mg/dL - VTE Documentation of Mechanical Device: Venous foot pump, device Consult Discharge Plan - Plan Referrals: NONE,PCP [Primary Care Provider] - David Horton, FLORAL DEPARTMENT SPECIALIST [Family Provider] -
[2017-06-19] MEDS ORDERED: 0.9 % Sodium Chloride 250 ML ONE (15:58)
[2017-06-19] MEDS: Pantoprazole 40 MG VIAL IVP SCH (16:00)
[2017-06-19] MEDS: *HR* OxyCODONE Immed Rel 5 MG TABLET PO PRN (16:01)
[2017-06-19] MEDS ORDERED: *HR* Rivaroxaban 15 MG TABLET PO SCH (18:00)
[2017-06-19 20:12] LABS: Hematocrit 27.8 % (35.3-44.9)
[2017-06-19 20:13] LABS: Hemoglobin 9.1 g/dL (11.5-15.4)
--- NOTE | 2017-06-19 20:48 | Orthopedics Progress Note ---
Date of Encounter: 06/19/17 Time of Encounter: 20:47 Subjective Principal diagnosis: Status post IM nailing Interval history: The patient is without complaints. Afebrile vital signs are stable. Incision is clean dry and intact. Neurovascularly intact with regard to bilateral lower extremities. Assessment :stable. Plan mobilize ,continue analgesics, discharge planning. Objective Vital signs: Vital Signs Temp Pulse Resp BP Pulse Ox 06/19/17 19:04 99.0 F 85 16 97/61 92 06/19/17 18:05 97.9 F 91 16 168/79 91 06/19/17 16:29 98.5 F 85 16 138/70 96 06/19/17 16:14 98.9 F 86 15 120/69 90 06/19/17 15:43 98.9 F 86 15 120/69 90 06/19/17 12:46 97.9 F 84 16 129/68 94 06/19/17 12:31 98.0 F 84 15 102/55 93 06/19/17 12:15 98.0 F 88 15 109/56 94 06/19/17 08:24 98 06/19/17 07:00 98.3 F 78 16 107/63 98 06/19/17 03:32 98.5 F 85 15 101/59 93 06/18/17 23:00 98.2 F 87 15 103/58 92 Intake and Output 06/19/17 06/19/17 06/19/17 07:59 15:59 23:59 Intake Total 0 / 0 550 / 550 470 / 470 Output Total 360 / 360 300 / 300 0 / 0 Balance -360 / -360 250 / 250 470 / 470 Intake: Oral 0 / 0 200 / 200 120 / 120 Blood Product 350 / 350 350 / 350 Rbcs Leuko Poor As-1 Unit 350 / 350 [id number] Rbcs Leuko Poor As-1 Unit 350 / 350 [id number] Output: Urine 0 / 0 300 / 300 0 / 0 Straight Cath 360 / 360 Other: Meal Lunch Dinner Percent of Meal Consumed 30% 25% Weight 67.8 kg Blood Glucose* 182 98 185 Patient Weight 06/19/17 23:59 Weight 67.8 kg - Labs CBC & BMP: 06/19/17 19:59 06/19/17 05:25 Labs: Abnormal lab results RBC 2.53 M/mcL (3.82-4.97) L 06/19/17 05:25 Hgb 9.1 g/dL (11.5-15.4) L D 06/19/17 19:59 Hct 27.8 % (35.3-44.9) L 06/19/17 19:59 MCH 27.7 pg (28.0-33.3) L 06/19/17 05:25 MCHC 31.5 g/dL (31.6-35.5) L 06/19/17 05:25 Neutrophils # 12.0 K/mcL (1.6-8.9) H 06/18/17 10:58 Sodium 132 mEq/L (136-145) L 06/19/17 05:25 BUN 24 mg/dL (8-23) H 06/19/17 05:25 BUN/Creatinine Ratio 30 (6-26) H 06/19/17 05:25 Glucose 192 mg/dL (70-105) H 06/19/17 05:25 POC Glucose 185 (58-89) H 06/19/17 20:17 Ur Specific [place] 1.030 (1.010-1.025) H 06/19/17 04:45 Urine Ketones Trace mg/dL (Negative) H 06/19/17 04:45 - VTE Documentation of Mechanical Device: Venous foot pump, device Consult Discharge Plan - Plan Referrals: NONE,PCP [Primary Care Provider] - David Horton, WILDLIFE ECOLOGY PROFESSOR [Family Provider] -
[2017-06-20] MEDS: *HR* OxyCODONE Immed Rel 5 MG TABLET PO PRN ×2 (02:08→08:33)
[2017-06-20 06:32] LABS: Hematocrit 28.5 % (35.3-44.9); Hemoglobin 9.2 g/dL (11.5-15.4); Mean Corpuscular HGB Conc 32.3 g/dL (31.6-35.5); Mean Corpuscular Hemoglobin 28.4 pg (28.0-33.3); Mean Platelet Volume 10.2 fL (9.4-12.4); Platelet Count 278 K/mcL (140-400); Red Blood Count 3.24 M/mcL (3.82-4.97); Red Cell Distribution Width 13.7 % (11.5-14.5)
--- NOTE | 2017-06-20 06:48 | Orthopedics Progress Note ---
Date of Encounter: 06/20/17 Time of Encounter: 06:48 Subjective Principal diagnosis: Status post IM nailing Interval history: Patient was seen this morning doing well without complaints. Afebrile vital signs stable. Operative extremity: Neurovascularly intact Dressing clean dry and intact Calves nontender Assessment and plan: Continue with postoperative care Hemoglobin 9.2 okay for discharge Objective Vital signs: Vital Signs Temp Pulse Resp BP Pulse Ox 06/20/17 06:26 97.9 F 74 16 121/71 98 06/20/17 03:47 98.7 F 54 16 101/64 96 06/19/17 23:23 99.1 F 72 94 94/57 06/19/17 19:04 99.0 F 85 16 97/61 92 06/19/17 18:05 97.9 F 91 16 168/79 91 06/19/17 16:29 98.5 F 85 16 138/70 96 06/19/17 16:14 98.9 F 86 15 120/69 90 06/19/17 15:43 98.9 F 86 15 120/69 90 06/19/17 12:46 97.9 F 84 16 129/68 94 06/19/17 12:31 98.0 F 84 15 102/55 93 06/19/17 12:15 98.0 F 88 15 109/56 94 06/19/17 08:24 98 06/19/17 07:00 98.3 F 78 16 107/63 98 Intake and Output 06/19/17 06/19/17 06/20/17 15:59 23:59 07:59 Intake Total 550 / 550 470 / 470 Output Total 300 / 300 0 / 0 Balance 250 / 250 470 / 470 Intake: Oral 200 / 200 120 / 120 Blood Product 350 / 350 350 / 350 Rbcs Leuko Poor As-1 Unit 350 / 350 [id number] Rbcs Leuko Poor As-1 Unit 350 / 350 [id number] Output: Urine 300 / 300 0 / 0 Other: Meal Lunch Dinner Percent of Meal Consumed 30% 25% Weight 69.2 kg 69.2 kg Blood Glucose* 98 185 Patient Weight 06/20/17 23:59 Weight 69.2 kg - Labs CBC & BMP: 06/20/17 05:48 06/19/17 05:25 Labs: Abnormal lab results RBC 3.24 M/mcL (3.82-4.97) L 06/20/17 05:48 Hgb 9.2 g/dL (11.5-15.4) L 06/20/17 05:48 Hct 28.5 % (35.3-44.9) L 06/20/17 05:48 Neutrophils # 12.0 K/mcL (1.6-8.9) H 06/18/17 10:58 Sodium 132 mEq/L (136-145) L 06/19/17 05:25 BUN 24 mg/dL (8-23) H 06/19/17 05:25 BUN/Creatinine Ratio 30 (6-26) H 06/19/17 05:25 Glucose 192 mg/dL (70-105) H 06/19/17 05:25 POC Glucose 185 (58-89) H 06/19/17 20:17 Ur Specific [place] 1.030 (1.010-1.025) H 06/19/17 04:45 Urine Ketones Trace mg/dL (Negative) H 06/19/17 04:45 - VTE Documentation of Mechanical Device: Venous foot pump, device Consult Discharge Plan - Plan Referrals: NONE,PCP [Primary Care Provider] - David Horton, WATER CARTER [Family Provider] -
[2017-06-20 06:56] LABS: Blood Urea Nitrogen 31 mg/dL (8-23); Carbon Dioxide 43 mEq/L (23-29); Chloride 108 mEq/L (98-107); Glucose 225 mg/dL (70-105); Osmolality,Calculated 306 (280-300); Potassium 4.3 mEq/L (3.5-5.1); Sodium 141 mEq/L (136-145)
[2017-06-20] MEDS: Insulin LISPRO 300 UNITS/3 ML VIAL SQ SCH ×4 (08:32→22:08)
[2017-06-20] MEDS: Pantoprazole 40 MG VIAL IVP SCH (08:36)
[2017-06-20 11:11] LABS: BUN/Creatinine Ratio 42 (6-26); eGFR For African Americans > 60 (> 60); eGFR For Non-African Americans > 60 (> 60)
[2017-06-20 11:12] LABS: Calcium 8.4 mg/dL (8.6-10.3)
[2017-06-20] MEDS: Acetaminophen 325 MG TABLET PO PRN (12:12)
[2017-06-20] MEDS ORDERED: Ondansetron ODT 4 MG TAB.RAPDIS SL PRN (12:28)
--- NOTE | 2017-06-20 17:49 | Internal Med Progress Note ---
Date of Encounter: 06/20/17 Time of Encounter: 17:47 - Assessment and plan (1) Hip fracture, intertrochanteric Current Visit: Yes Status: Acute Assessment and plan: Right intertrochanteric fracture status post open reduction with intramedullary nail fixation Occurred after a fall Orthopedic surgery following Continue oxycodone for pain Stop Toradol X-ray showed: Acute comminuted displaced traumatic intertrochanteric fracture of the right proximal femur. Qualifiers: Encounter type: initial encounter Fracture type: closed Fracture alignment: displaced Laterality: right Qualified Code(s): S72.141A - Displaced intertrochanteric fracture of right femur, initial encounter for closed fracture (2) Postoperative anemia due to acute blood loss Current Visit: Yes Status: Acute Assessment and plan: 1 unit of blood ordered Consider further transfusions Ordered Hemoccult, start Protonix IV, the patient has not had any bowel movements, very low suspicion for GI bleed May resume aspirin and xarelto in the morning if stable (3) Atrial fibrillation Current Visit: Yes Status: Chronic Assessment and plan: Controlled on metoprolol Hold xarelto due to anemia Qualifiers: Atrial fibrillation type: paroxysmal Qualified Code(s): I48.0 - Paroxysmal atrial fibrillation (4) DM2 (diabetes mellitus, type 2) Current Visit: Yes Status: Chronic Assessment and plan: Insulin sliding scale Qualifiers: Diabetes mellitus fdc insulin use: without middle or intermediate school principal use Diabetes mellitus complication status: with kidney complications Diabetes mellitus complication detail: with chronic kidney disease Chronic kidney disease stage : stage 3 (moderate) Qualified Code(s): E11.22 - Type 2 diabetes mellitus with diabetic chronic kidney disease; N18.3 - Chronic kidney disease, stage 3 ( moderate); N18.3 - Chronic kidney disease, stage 3 (moderate) (5) Hyponatremia Current Visit: No Status: Acute Assessment and plan: Monitor sodium (6) Dementia Current Visit: Yes Status: Acute Assessment and plan: Family expressed concern over her mental decline over the past few years Possible dementia Qualifiers: Dementia type: unspecified type Dementia behavioral disturbance: without behavioral disturbance Qualified Code(s): F03.90 - Unspecified dementia without behavioral disturbance (7) CVA (cerebral vascular accident) Current Visit: Yes Status: Acute Assessment and plan: History of CVAs Hold aspirin due to anemia Qualifiers: CVA mechanism: unspecified Qualified Code(s): I63.9 - Cerebral infarction, unspecified - Subjective Interval history: Disoriented. Complains of mild pain on the right hip , improved, denies any chest pain or shortness of breath, no abdominal pain or dysuria, confused at baseline - Constitutional Vitals: Temp Pulse Resp BP Pulse Ox 98.0 F 81 18 162/72 93 06/20/17 14:22 06/20/17 14:22 06/20/17 14:22 06/20/17 14:22 06/20/17 14:22 General appearance: Present: cooperative, A&O X 2, answers questions appropriately Exam: Confused at times Disoriented in time - Head Head exam: Present: atraumatic, normocephalic - Eye Eye exam: Present: PERRL, conjuntiva pink, sclera anicteric Pupils: Present: PERRL - Neck Neck exam general surgery: Present: supple, trachea midline. Absent: lymphadenopathy - Respiratory Respiratory exam: Present: CTAB. Absent: accessory muscle use, rales, rhonchi, wheezes - Cardiovascular Cardiovascular exam: Present: RRR, +S1, +S2. Absent: diastolic murmur, gallop, rubs, systolic murmur - GI/Abdominal GI/Abdominal exam: Present: normal bowel sounds, soft, no peritoneal signs. Absent: distended, tenderness - Extremities Exam Extremities exam: Present: warm, radial pulses palpable and symmetrical. Absent : calf tenderness, cyanotic, pedal edema Additional comments: Right hip surgical wound , no signs of hematoma or infection Internal Medicine: Result - Labs CBC & Chem 7: 06/20/17 05:48 06/20/17 05:48 Labs: Short CBC 06/19/17 06/20/17 Range/Units 19:59 05:48 WBC 10.1 (4.3-11.1) K/mcL Hgb 9.1 L D 9.2 L (11.5-15.4) g/dL Hct 27.8 L 28.5 L (35.3-44.9) % Plt Count 278 (140-400) K/mcL BMP 06/20/17 05:48 Sodium 141 Potassium 4.3 Chloride 108 H Carbon Dioxide 43 H* BUN 31 H Creatinine 0.73 Glucose 225 H Calcium 8.4 L - VTE Documentation of Mechanical Device: Intermittent pneumatic compression device Consult Discharge Plan - Plan Additional Instructions: Discharge Instructions: Total Hip Replacement Please call [facility] ([phone]), your Primary Care Physician, or report to the Emergency Room if you have any of the following symptoms: Nausea, vomiting, fever greater that 101.5, swelling, chest pain, shortness of breath, increased pain/redness/drainage/odor for your incision site, numbness/ tingling, or any other concerning symptoms. ACTIVITY:Weight-bearing as tolerated for 8 weeks with hip dislocation precautions that physical therapy taught you. You may progress as tolerated under the guidance of your physical therapist. You do not need to sleep with a pillow between your legs. You can also seep on the operative side or on your stomach. MEDICATIONS: Upon discharge resume your home medications. Take all the medications as prescribed. Take a stool softener if taking narcotic pain medications. Stool softeners are only effective if you drink enough fluids. Drink 6-8 glass of water or fluids a day, unless this is not allowed for another health problem. Despite using stool softeners, if you haven't had a bowel movement in 3 days, please switch to a gentle laxative. Gentle laxatives are sold over the counter. You should have a bowel movement within 24 hours, if not call the office. You will be discharged from the hospital with a prescription for pain medication. You are encouraged to decrease the use of narcotic pain medication as tolerated. Should you require a refill, please call the office. [facility] prescribes narcotic pain medication for only 4-6 weeks after surgery. If you require pain medication beyond this time period, you may be referred to your Primary Care Physician or to the Pain Clinic for further evaluation. Plan ahead for refills on pain medication as many narcotics either need to be picked up at the office or mailed. It is best to call 48-72 hours in advance of needing a prescription refill so you don't run out of medication. To help control the post-operative pain, you may take NSAIDs (Aleve,Advil, Motrin, ibuprofen, naprosyn) or Tylenol as prescribed on the bottle in addition to the pain medication. ANTICOAGULATION (blood thinners): Continue your Aspirin, Lovenox or Coumadin as prescribed to help prevent a blood clot in the leg or in the lungs. As long as your incision remains dry and you tolerate the NSAIDs (Aleve, Advil, Motrin, Ibuprofen, Naprosyn), it is OK to use the NSAIDS while you are taking your anticoagulation medication. Should your incision start to drain, stop the NSAID and contact our office. Common symptoms of blood clot in the legs include: localized pain, swelling, calf tenderness, redness or discoloration of the skin. Blood clot in the lung symptoms include: shortness of breath, rapid pulse, sweating, and chest pain that worsens with deep breathing, coughing up blood, lightheadedness, feelings of anxiety. If you experience any of these symptoms notify your physician immediately, go to the emergency room, or if having trouble breathing, call 911. WOUND CARE: Leave the dressing on for 7 to 10days. You may change the dressing if it is saturated greater than 50%. Do not get the dressing wet at anytime. Wash your hands with antibacterial soap, rinse and dry prior to any wound care. If you have kay the visiting nurse or rehab facility can remove the stapes 10-14 days after surgery and place steri-strips across the wound. Leave the steri-strips in place until they fall off on their own. You may let water from the shower run on top of the steri-strips. If you do not have a visiting nurse or rehab facility, you will need to return to the office at 10-14 days for the kay to be removed. If you have itching or redness around the dressing call the office. FOLLOW-UP: Please follow up with your surgeon in the orthopedic clinic in 6 weeks from the day of surgery. If you have kay that need to be removed, you will need to come back to the office in 10-14 days from the day of surgery. Referrals: NONE,PCP [Primary Care Provider] - David Horton, WIND PROJECTS SUPERVISOR [Family Provider] -
[2017-06-21 07:26] LABS: Hematocrit 30.2 % (35.3-44.9); Hemoglobin 9.9 g/dL (11.5-15.4); Mean Corpuscular HGB Conc 32.8 g/dL (31.6-35.5); Mean Corpuscular Hemoglobin 28.2 pg (28.0-33.3); Mean Platelet Volume 9.8 fL (9.4-12.4); Platelet Count 320 K/mcL (140-400); Red Blood Count 3.51 M/mcL (3.82-4.97); Red Cell Distribution Width 13.7 % (11.5-14.5)
[2017-06-21 08:48] LABS: BUN/Creatinine Ratio 22 (6-26); Blood Urea Nitrogen 12 mg/dL (8-23); Calcium 8.9 mg/dL (8.6-10.3); Carbon Dioxide 24 mEq/L (23-29); Chloride 97 mEq/L (98-107); Glucose 183 mg/dL (70-105); Osmolality,Calculated 278 (280-300); Potassium 3.8 mEq/L (3.5-5.1); Sodium 132 mEq/L (136-145); eGFR For African Americans > 60 (> 60); eGFR For Non-African Americans > 60 (> 60)
[2017-06-21] MEDS: Acetaminophen 325 MG TABLET PO PRN (09:18)
[2017-06-21] MEDS: Insulin LISPRO 300 UNITS/3 ML VIAL SQ SCH ×2 (09:18→11:53)
--- NOTE | 2017-06-21 12:38 | Discharge Summary ---
- NOTES TO OUTPATIENT PROVIDER Notes to Outpatient Provider: - Follow-up H&H. - Xarelto resumed on discharge, re-assess if to continue. Orders not resulted at time of discharge: Pending orders 06/19/17 13:04 Fecal Hemoccult [Occult Blood,Stool] [BF] Routine 06/20/17 06:48 XR hip complete RT [XR] Routine Date of Encounter: 06/21/17 Time of Encounter: 12:37 - Discharge Diagnosis (1) Hip fracture, intertrochanteric Priority: Primary Status: Acute Qualifiers: Encounter type: initial encounter Fracture type: closed Fracture alignment: displaced Laterality: right Qualified Code(s): S72.141A - Displaced intertrochanteric fracture of right femur, initial encounter for closed fracture (2) Fall Priority: Secondary Status: Acute Qualifiers: Encounter type: initial encounter Qualified Code(s): W19.XXXA - Unspecified fall, initial encounter (3) CVA (cerebral vascular accident) Priority: Secondary Status: Acute Qualifiers: CVA mechanism: unspecified Qualified Code(s): I63.9 - Cerebral infarction, unspecified (4) Dementia Priority: Secondary Status: Chronic Qualifiers: Dementia type: unspecified type Dementia behavioral disturbance: without behavioral disturbance Qualified Code(s): F03.90 - Unspecified dementia without behavioral disturbance (5) Postoperative anemia due to acute blood loss Priority: Secondary Status: Acute (6) Atrial fibrillation Priority: Secondary Status: Chronic Qualifiers: Atrial fibrillation type: paroxysmal Qualified Code(s): I48.0 - Paroxysmal atrial fibrillation (7) DM2 (diabetes mellitus, type 2) Priority: Secondary Status: Chronic Qualifiers: Diabetes mellitus termite exterminator helper insulin use: without termite exterminator helper use Diabetes mellitus complication status: with kidney complications Diabetes mellitus complication detail: with chronic kidney disease Chronic kidney disease stage : stage 3 (moderate) Qualified Code(s): E11.22 - Type 2 diabetes mellitus with diabetic chronic kidney disease; N18.3 - Chronic kidney disease, stage 3 ( moderate); N18.3 - Chronic kidney disease, stage 3 (moderate) (8) Hyponatremia Priority: Secondary Status: Acute Hospital course: Ms. Benedict is a 76 year old female patient with history of atrial fibrillation, diabetes, dementia who was recently discharged from [facility] following, admission for pneumonia presented to the ER for fall. She was trying to hot die picker something from the floor while sitting up in her wheelchair this morning when she fell down. She injured her right hip and has been having severe pain since then. She had been recovering well from her pneumonia and had completed antibiotic treatment. She denies any chest pain and shortness of breath nausea vomiting or diarrhea. She denies any palpitations or lightheadedness. Denies any orthopnea but does get mild swelling in her lower extremities occasionally. She takes metformin at home for her diabetes. She is on Xarelto for A. fib. Hip x-ray showed acute comminuted displaced traumatic intertrochanteric fracture of right proximal femur. Orthopedic surgery was consulted and Xarelto was held. She underwent right hip open reduction with intramedullary nail fixation on 05/20 and tolerated without issue. She did have one day later post-op anemia requiring 2 units PRBC on . She was monitored and remained hemodynamically stable. Hemoglobin returned to baseline. She was discharged in stable condition and Xarelto was resumed. - Time Spent with Patient Total time spent providing and/or coordinating discharge services: - Discharge Medications Prescriptions: OxyCODONE Immed Rel [Roxicodone 5 MG] 5 mg PO Q6HR PRN 3 Days #12 tablet PRN Reason: Severe Pain Home Medications: Aspirin 81 mg PO Q48H 365 Days tab.chew 06/09/17 [Rx] Metoprolol XL (24 HR) Succ [Toprol Xl] 25 mg PO DAILY #30 tab.er.24h 06/09/17 [ Rx] metFORMIN [Glucophage] 500 mg PO BIDWM #60 tablet 06/09/17 [Rx] Insulin LISPRO [HumaLOG] 0 units SQ TIDAC PRN 06/16/17 [History] OxyCODONE Immed Rel [Roxicodone 5 MG] 5 mg PO Q6HR PRN 3 Days #12 tablet [Rx] Rivaroxaban [Xarelto] 15 mg PO QPM tablet 06/21/17 [Rx] Allergies/Adverse Reactions: 3 Allergy/AdvReac Type Severity Reaction Status Date / Time No Known Allergies Allergy Verified 05/30/17 05:00 Date of admission: 06/16/17 11:29 Primary care physician: PCP NONE Consults: 06/16/17 11:52 Consult to Orthopedic Surgery [CONS] Routine Consulting Provider: [facility] Reason for Consult: Right hip fracture Time Notified: 11:52 Call Completed: Yes 06/16/17 11:55 Consult to Nutrition [CONS] Routine Comment: Consulting Provider: NUTRITION Reason for Dietary Consult: MST Score Consult to Pastoral Services [CONS] Routine Comment: Consult to Apprentice Stylist [CONS] Routine Reason for SW Consult: Discharge planning 06/17/17 18:36 Consult to Occupational Therapy [CONS] Routine Comment: Evaluate, develop and implement POC Reason for Consult: post hip surgery Does patient have active BEDREST order?: No Is patient medically & hemodynamically stable?: Yes Patient assessed for mobility or mobilized this visit?: No Consult to Orthopedic Navigator [CONS] [CONS] Routine Consult to Physical Therapy [CONS] Routine Comment: Evaluate, develop and implement POC Reason for Consult: post hip surgery Does patient have active BEDREST order?: No Is patient medically & hemodynamically stable?: Yes Patient assessed for mobility or mobilized this visit?: No Consult to Apprentice Stylist [CONS] Routine Reason for SW Consult: post -op hip fracture RT Post Op Consult [CONS] Routine Discharging clinician: Rigo Leslie - Constitutional Vitals: Temp Pulse Resp BP Pulse Ox 98.6 F 75 16 93/60 94 06/21/17 11:02 06/21/17 11:02 06/21/17 11:02 06/21/17 11:02 06/21/17 11:02 General appearance: Present: cooperative, A&O X 2, answers questions appropriately - Patient Status Disposition: Transfer SNF Condition: Fair Functional capacity at discharge: bed bound Overall status at discharge: patient is progressing back to baseline - Discharge Instructions Follow Up With: NONE,PCP [Primary Care Provider] - David Horton, SHAKE LOADER [Family Provider] - Additional Instructions: Discharge Instructions: Total Hip Replacement Please call [facility] ([phone]), your Primary Care Physician, or report to the Emergency Room if you have any of the following symptoms: Nausea, vomiting, fever greater that 101.5, swelling, chest pain, shortness of breath, increased pain/redness/drainage/odor for your incision site, numbness/ tingling, or any other concerning symptoms. ACTIVITY:Weight-bearing as tolerated for 8 weeks with hip dislocation precautions that physical therapy taught you. You may progress as tolerated under the guidance of your physical therapist. You do not need to sleep with a pillow between your legs. You can also seep on the operative side or on your stomach. MEDICATIONS: Upon discharge resume your home medications. Take all the medications as prescribed. Take a stool softener if taking narcotic pain medications. Stool softeners are only effective if you drink enough fluids. Drink 6-8 glass of water or fluids a day, unless this is not allowed for another health problem. Despite using stool softeners, if you haven't had a bowel movement in 3 days, please switch to a gentle laxative. Gentle laxatives are sold over the counter. You should have a bowel movement within 24 hours, if not call the office. You will be discharged from the hospital with a prescription for pain medication. You are encouraged to decrease the use of narcotic pain medication as tolerated. Should you require a refill, please call the office. [facility] prescribes narcotic pain medication for only 4-6 weeks after surgery. If you require pain medication beyond this time period, you may be referred to your Primary Care Physician or to the Pain Clinic for further evaluation. Plan ahead for refills on pain medication as many narcotics either need to be picked up at the office or mailed. It is best to call 48-72 hours in advance of needing a prescription refill so you don't run out of medication. To help control the post-operative pain, you may take NSAIDs (Aleve,Advil, Motrin, ibuprofen, naprosyn) or Tylenol as prescribed on the bottle in addition to the pain medication. ANTICOAGULATION (blood thinners): Continue your Aspirin, Lovenox or Coumadin as prescribed to help prevent a blood clot in the leg or in the lungs. As long as your incision remains dry and you tolerate the NSAIDs (Aleve, Advil, Motrin, Ibuprofen, Naprosyn), it is OK to use the NSAIDS while you are taking your anticoagulation medication. Should your incision start to drain, stop the NSAID and contact our office. Common symptoms of blood clot in the legs include: localized pain, swelling, calf tenderness, redness or discoloration of the skin. Blood clot in the lung symptoms include: shortness of breath, rapid pulse, sweating, and chest pain that worsens with deep breathing, coughing up blood, lightheadedness, feelings of anxiety. If you experience any of these symptoms notify your physician immediately, go to the emergency room, or if having trouble breathing, call 911. WOUND CARE: Leave the dressing on for 7 to 10days. You may change the dressing if it is saturated greater than 50%. Do not get the dressing wet at anytime. Wash your hands with antibacterial soap, rinse and dry prior to any wound care. If you have kay the visiting nurse or rehab facility can remove the stapes 10-14 days after surgery [address] steri-strips across the wound. Leave the steri-strips in place until they fall off on their own. You may let water from the shower run on top of the steri-strips. If you do not have a visiting nurse or rehab facility, you will need to return to the office at 10-14 days for the kay to be removed. If you have itching or redness around the dressing call the office. FOLLOW-UP: Please follow up with your surgeon in the orthopedic clinic in 6 weeks from the day of surgery. If you have kay that need to be removed, you will need to come back to the office in 10-14 days from the day of surgery. - Diet and Activity Activity: as per physical therapy Diet: diabetic diet, low fat, low cholesterol, low salt diet - VTE Documentation of Mechanical Device: Venous foot pump, device
--- NOTE | 2017-06-21 12:53 | Physician Discharge Referral ---
ExtendedCare Referral Info Provider in Charge after Transfer: PCP Institutional Level of Care: Skilled - Diagnosis (1) Hip fracture, intertrochanteric Priority: Primary Status: Acute (2) Fall Priority: Secondary Status: Acute (3) CVA (cerebral vascular accident) Priority: Secondary Status: Acute (4) Dementia Priority: Secondary Status: Chronic (5) Postoperative anemia due to acute blood loss Priority: Secondary Status: Acute (6) Atrial fibrillation Priority: Secondary Status: Chronic (7) DM2 (diabetes mellitus, type 2) Priority: Secondary Status: Chronic (8) Hyponatremia Priority: Secondary Status: Acute - Transfer Medications Prescriptions: OxyCODONE Immed Rel [Roxicodone 5 MG] 5 mg PO Q6HR PRN 3 Days #12 tablet PRN Reason: Severe Pain Home Medications: Aspirin 81 mg PO Q48H 365 Days tab.chew 06/09/17 [Rx] Metoprolol XL (24 HR) Succ [Toprol Xl] 25 mg PO DAILY #30 tab.er.24h 06/09/17 [ Rx] metFORMIN [Glucophage] 500 mg PO BIDWM #60 tablet 06/09/17 [Rx] Insulin LISPRO [HumaLOG] 0 units SQ TIDAC PRN 06/16/17 [History] OxyCODONE Immed Rel [Roxicodone 5 MG] 5 mg PO Q6HR PRN 3 Days #12 tablet [Rx] Rivaroxaban [Xarelto] 15 mg PO QPM tablet 06/21/17 [Rx] Allergies/Adverse Reactions: 3 Allergy/AdvReac Type Severity Reaction Status Date / Time No Known Allergies Allergy Verified 05/30/17 05:00 - Respiratory Orders Smoking Cessation: Smoking cessation has been advised. For more information, call the [place] Tobacco Quit Line at 7-562-MURW-NOW. - Advance Directives Code Status: Full Code - Mobility Orders Other (as per physical therapy) - Rehabiliation Orders Rehab Potential: Fair Rehab Orders: Evaluation for Physical Therapy, Evaluation for Occupational Therapy - Treatments Skin tear care topically daily PRN per policy, May check for fecal impaction rectally daily PRN - Diet Orders No Added Salt (MOSES), No Concentrated Sweets, Cardiac CERTIFICATION: I certify that the transfer of the above named patient to an Extended Care Facility is necessary for the continuing treatment of the diagnosis listed. The above information is true and accurate reflection of patient's current condition. Confidential - Redisclosure prohibited without a patient's written consent.
[2017-06-21 15:18] VITALS: BP 122/66
== END 2017-06-21 16:32 | DRG 481 ==
LOC: 3NENU 11:29
PROVIDERS: ADMIT Internal Medicine; ATTEND Internal Medicine

== ENCOUNTER 2021-07-20 08:00 | Observation (INO) ==
[2021-07-20] MEDS ORDERED: Naloxone 0.4 MG/ML INJ IVP PRN ×2 (10:33→13:43)
[2021-07-20 11:22] LABS: Basophils % 0.4 %; Eosinophils % 0.4 %; Hemoglobin 8.5 g/dL (11.5-15.4); Immature Granulocytes % 0.4 % (0-4); Lymphocytes # 1.7 K/mcL (0.6-4.6); Lymphocytes % 14.9 %; Mean Corpuscular Hemoglobin 30.8 pg (28.0-33.3); Mean Corpuscular Volume 90.6 fL (83.0-100.0); Mean Platelet Volume 8.6 fL (9.4-12.4); Monocytes # 0.7 K/mcL (0.0-1.3); Monocytes % 5.8 %; Neutrophils # 8.8 K/mcL (1.6-8.9); Platelet Count 410 K/mcL (140-400); Red Blood Count 2.76 M/mcL (3.82-4.97); Red Cell Distribution Width 16.4 % (11.5-14.5); Segmented Neutrophils % 78.1 %; White Blood Count 11.2 K/mcL (4.3-11.1)
[2021-07-20 11:57] LABS: Alanine Aminotransferase 3 Units/L (7-52); Albumin 3.5 g/dL (3.5-5.7); Albumin/Globulin Ratio 1.4 (1.1-2.2); Alkaline Phosphatase 34 Units/L (34-104); Aspartate Amino Transferase 8 Units/L (13-39); BUN/Creatinine Ratio 30 (6-26); Bilirubin,Total 0.4 mg/dL (0.3-1.0); Blood Urea Nitrogen 14 mg/dL (8-23); Calcium 8.2 mg/dL (8.6-10.3); Carbon Dioxide 29 mEq/L (23-29); Chloride 94 mEq/L (98-107); Globulin 2.5 g/dL (2.4-3.5); Glucose 91 mg/dL (70-105); Magnesium 0.9 mg/dL (1.6-2.6); Osmolality,Calculated 278 (280-300); Phosphorous 2.3 mg/dL (2.7-4.5); Potassium 2.9 mEq/L (3.5-5.1); Sodium 134 mEq/L (136-145); eGFR For African Americans > 60 (> 60); eGFR For Non-African Americans > 60 (> 60)
[2021-07-20] MEDS ORDERED: D5% in Water 1,000 ML IVC PRN (13:44)
[2021-07-20] MEDS ORDERED: Dextrose 4 GM Chewable Tablets PO PRN ×2 (13:44)
[2021-07-20] MEDS ORDERED: *HR* Dextrose 50 % in Water (Syg) 50 ML SYRINGE IVP PRN (13:44)
[2021-07-20] MEDS: Insulin LISPRO 300 UNITS/3 ML VIAL SUBQ SCH ×2 (15:24→18:11)
[2021-07-20] MEDS: 0.9 % Sodium Chloride 1,000 ML IVC SCH (15:33)
[2021-07-21] MEDS: Insulin LISPRO 300 UNITS/3 ML VIAL SUBQ SCH ×4 (00:44→17:26)
[2021-07-21 01:50] LABS: Basophils # 0.1 K/mcL (0.0-0.2); Basophils % 0.4 %; Eosinophils # 0.1 K/mcL (0.0-0.6); Eosinophils % 0.8 %; Hematocrit 25.7 % (35.3-44.9); Hemoglobin 8.5 g/dL (11.5-15.4); Immature Granulocytes % 0.4 % (0-4); Lymphocytes # 2.2 K/mcL (0.6-4.6); Lymphocytes % 17.1 %; Mean Corpuscular HGB Conc 33.1 g/dL (31.6-35.5); Mean Corpuscular Hemoglobin 30.2 pg (28.0-33.3); Mean Corpuscular Volume 91.5 fL (83.0-100.0); Mean Platelet Volume 9.2 fL (9.4-12.4); Monocytes # 0.7 K/mcL (0.0-1.3); Monocytes % 5.7 %; Neutrophils # 9.6 K/mcL (1.6-8.9); Platelet Count 463 K/mcL (140-400); Red Blood Count 2.81 M/mcL (3.82-4.97); Segmented Neutrophils % 75.6 %; White Blood Count 12.7 K/mcL (4.3-11.1)
[2021-07-21 02:02] LABS: BUN/Creatinine Ratio 26 (6-26); Blood Urea Nitrogen 10 mg/dL (8-23); Calcium 8.2 mg/dL (8.6-10.3); Carbon Dioxide 27 mEq/L (23-29); Chloride 95 mEq/L (98-107); Glucose 81 mg/dL (70-105); Magnesium 1.7 mg/dL (1.6-2.6); Osmolality,Calculated 276 (280-300); Potassium 3.1 mEq/L (3.5-5.1); Sodium 134 mEq/L (136-145); eGFR For African Americans > 60 (> 60); eGFR For Non-African Americans > 60 (> 60)
[2021-07-21] MEDS: 0.9 % Sodium Chloride 1,000 ML IVC SCH ×2 (04:54→15:32)
[2021-07-21] MEDS ORDERED: Potassium Phosphate 44 MEQ in 0.9 % Sodium Chloride 250 ML IVPB ONE (07:18)
[2021-07-21] MEDS: Piperacillin/Tazobactam 3.375 GM in 0.9 % Sodium Chloride Mini Bag 100 ML IVPB SCH ×2 (08:58→16:35)
[2021-07-21] MEDS ORDERED: cefTRIAXone 1,000 MG in 0.9 % Sodium Chloride 10 ML IVP SCH (09:00)
[2021-07-21] MEDS: OXcarbazepine 150 MG TABLET PO SCH ×2 (09:22→22:51)
[2021-07-21] MEDS ORDERED: Lidocaine -MPF 2% 5 ML VIAL ONE (11:45)
[2021-07-21] MEDS ORDERED: *HR* Propofol 200 MG/20 ML VIAL IVP ONE (11:45)
[2021-07-22] MEDS: Piperacillin/Tazobactam 3.375 GM in 0.9 % Sodium Chloride Mini Bag 100 ML IVPB SCH ×2 (02:03→09:13)
[2021-07-22] MEDS: Insulin LISPRO 300 UNITS/3 ML VIAL SUBQ SCH ×3 (02:05→13:21)
[2021-07-22] MEDS: 0.9 % Sodium Chloride 1,000 ML IVC SCH (04:56)
[2021-07-22 06:12] LABS: BUN/Creatinine Ratio 11 (6-26); Blood Urea Nitrogen 4 mg/dL (8-23); Calcium 7.7 mg/dL (8.6-10.3); Carbon Dioxide 28 mEq/L (23-29); Chloride 97 mEq/L (98-107); Glucose 125 mg/dL (70-105); Magnesium 1.2 mg/dL (1.6-2.6); Osmolality,Calculated 272 (280-300); Potassium 3.7 mEq/L (3.5-5.1); Sodium 132 mEq/L (136-145); eGFR For African Americans > 60 (> 60); eGFR For Non-African Americans > 60 (> 60)
[2021-07-22 06:31] LABS: Immature Granulocytes % 1.9 % (0-4)
[2021-07-22 06:33] LABS: Basophils # 0.1 K/mcL (0.0-0.2); Basophils % 0.6 %; Eosinophils # 0.1 K/mcL (0.0-0.6); Eosinophils % 0.8 %; Hematocrit 24.3 % (35.3-44.9); Hemoglobin 8.8 g/dL (11.5-15.4); Immature Platelets 1.8 % (1.1-6.1); Lymphocytes # 1.7 K/mcL (0.6-4.6); Lymphocytes % 11.8 %; Mean Corpuscular HGB Conc 36.2 g/dL (31.6-35.5); Mean Corpuscular Hemoglobin 31.5 pg (28.0-33.3); Mean Corpuscular Volume 87.1 fL (83.0-100.0); Mean Platelet Volume 9.9 fL (9.4-12.4); Monocytes % 7.1 %; Neutrophils # 11.2 K/mcL (1.6-8.9); Nucleated Red Blood Cells 0.1 /100 WBC (0); Platelet Count 418 K/mcL (140-400); Red Blood Count 2.79 M/mcL (3.82-4.97); Segmented Neutrophils % 77.8 %; White Blood Count 14.4 K/mcL (4.3-11.1)
[2021-07-22 07:17] VITALS: BP 143/71; PULSE 82; TEMP 98; O2SAT 98
[2021-07-22 07:56] LABS: Platelet Estimate Normal (Normal)
[2021-07-22] MEDS: OXcarbazepine 150 MG TABLET PO SCH (10:16)
[2021-07-22] MEDS ORDERED: *HR* Rivaroxaban 10 MG TABLET PO SCH (17:00)
== END 2021-07-22 14:41 | disposition home health service (06) ==
LOC: 3ANU → SUATTDRO 09:59
PROVIDERS: ADMIT Internal Medicine; ATTEND Internal Medicine